=== PATIENT | female | born 1990 | race Caucasian/White ===

== ENCOUNTER → 2020-05-01 11:04 | Outpatient (CLI) | payer OTHER, SELFPAY | PROVIDERS: PCP Registered Nurse Diabetes Educator; Visit Provider Registered Nurse Diabetes Educator | DX: N89.8 Other specified noninflammatory disorders of vagina (principal) | CPT/HCPCS: 87210 ==

== ENCOUNTER → 2020-05-05 15:06 | Outpatient (CLI) | payer OTHER, SELFPAY ==
--- NOTE | 2020-05-05 15:08 | DI.US.S_ITS ---
PROCEDURE: US PELVIC COMPLETE INDICATIONS: PELVIC PAIN TECHNIQUE: Real-time scanning was performed of the pelvic organs, with image documentation. Additional endovaginal scanning was necessary due to incomplete visualization of the adnexal and endometrial structures by transabdominal scanning. COMPARISON: None. FINDINGS: Transabdominal scanning: Limited scanning through the kidneys shows no hydronephrosis. No pathologic free abdominal or pelvic fluid. Endovaginal scanning: Uterus: Uterus is normal in size at 8.0 x 3.0 x 4.5 cm. The endometrium measures 14 mm in combined thickness and microcystic changes present. Ovaries: Bilateral complex ovarian cyst measuring 2.2 x 2.0 x 1.7 cm on the right and 1.8 x 2.4 x 1.3 cm on the left. IMPRESSION: Probable bilateral hemorrhagic ovarian cyst. Recommend short-term follow-up pelvic ultrasound in 10-14 weeks to assess for interval resolution. Prominent and mult cystic appearance of the endometrial complex which can also be reassessed on follow-up1 examination. Dictated by: Phan Carias [facility] Interpreted: Yoni Cullen MD on 05/05/2020 at 15:57 Approved by: Yoni Cullen M.D. on 05/05/2020 at 16:27
== END ==
PROVIDERS: PCP Registered Nurse Diabetes Educator; Referring Provider Registered Nurse Diabetes Educator; Visit Provider Registered Nurse Diabetes Educator
DX: R10.2 Pelvic and perineal pain (principal); N83.292 Other ovarian cyst, left side; N83.291 Other ovarian cyst, right side
CPT/HCPCS: 76830; 76856

== ENCOUNTER → 2020-05-09 09:50 | Outpatient (CLI) | payer OTHER, SELFPAY ==
[2020-05-09 11:34] LABS: Specimen Label MYRIAD SALIVA
== END ==
PROVIDERS: PCP Registered Nurse Diabetes Educator; Referring Provider Obstetrics & Gynecology; Visit Provider Obstetrics & Gynecology
DX: Z80.3 Family history of malignant neoplasm of breast (principal)

== ENCOUNTER → 2020-06-20 11:00 | Outpatient (CLI) | payer OTHER, SELFPAY ==
[2020-06-20 14:22] LABS: Cancer Antigen 125 13.6 U/mL (0-35)
[2020-06-22 13:37] LABS: Human Epididymis Prot 4 33.8 pmol/L (0.0-61.2)
== END ==
PROVIDERS: PCP Registered Nurse Diabetes Educator; Referring Provider Obstetrics & Gynecology; Visit Provider Obstetrics & Gynecology
DX: N83.209 Unspecified ovarian cyst, unspecified side (principal)
CPT/HCPCS: 36415; 86304; 86305

== ENCOUNTER → 2020-09-22 10:47 | Outpatient (CLI) | payer OTHER, SELFPAY ==
--- NOTE | 2020-09-22 | DI.MG.S_ITS ---
BILATERAL DIGITAL SCREENING MAMMOGRAM 3D/2D WITH CAD: 09/22/2020 CLINICAL: Baseline exam. Routine screening. Family history of breast cancer. No prior exams were available for comparison. The tissue of both breasts is heterogeneously dense. This may lower the sensitivity of mammography. Current study was also evaluated with a Computer Aided Detection (CAD) system. No significant masses, calcifications, or other findings are seen in either breast. IMPRESSION: NEGATIVE There is no mammographic evidence of malignancy. A 1 year screening mammogram is recommended. This exam was interpreted at Station ID: [id number]. NOTE: For mammograms, a report in lay terms will be sent to the patient. Approximately 15% of breast malignancies will not be visualized mammographically. In the management of a palpable breast mass, a negative mammogram must not discourage biopsy of a clinically suspicious lesion. Electronically Signed By: Nilton roe/reshma:09/22/2020 12:32:50 letter sent: Normal Exam ACR BI-RADS Category 1: Negative [id number]
--- NOTE | 2020-09-22 10:48 | DI.MRI.S_ITS ---
BREAST MRI OF BOTH BREASTS: 09/22/2020 CLINICAL: Scrrening, Family History. TECHNIQUE: The patient was placed prone in a dedicated breast imaging coil. Precontrast axial STIR and 3D FLASH without fat saturation sequences were obtained. Both before and after bolus injection of contrast, sequential 1-minute axial 3D FLASH with fat saturation sequences for 3 time points, with subtraction images and maximum intensity projections (MIP's) generated. Delayed sagittal FLASH images with fat saturation were also obtained. Computer-aided detection, including computer algorithm analysis of MRI image data for lesion detection and characterization, pharmacokinetic analysis, with further physician review for interpretation, was performed. COMPARISON: 09/22/2020 [facility]. FINDINGS: Image quality: Excellent. There is minimal background parenchymal enhancement. There is heterogeneously dense fibroglandular tissue in the bilateral breast. Right breast: In the upper outer quadrant of the right breast approximately 5.3 cm from the nipple, there is an oval enhancing mass measuring approximately 0.5 cm x 0.8 cm in transverse dimension (image 84, series 12) and approximately 0.9 cm in craniocaudal dimension (image 48, series 18). This demonstrates mixed kinetics on delayed phase enhancement. It is T2 hyperintense. Otherwise, no other suspicious mass, architectural distortion, or non-mass enhancement. No skin or nipple abnormalities. No right-sided axillary or internal mammary chain adenopathy. Left breast: No suspicious mass, non-mass enhancement, architectural distortion, skin abnormalities, or nipple abnormalities. No left-sided axillary or internal mammary chain adenopathy. Miscellaneous: Visualized portions of the upper abdomen and chest appear unremarkable. IMPRESSION: INCOMPLETE: NEEDS ADDITIONAL IMAGING EVALUATION 1. There is a 0.5 x 0.8 x 0.9 cm oval enhancing mass in the upper, outer quadrant of the right breast middle depth with mixed kinetics on delayed phase enhancement and T2 hyperintensity. This may represent a lymph node or fibroadenoma. Prominent background parenchymal enhancement may also have a similar appearance. Recommend second-look ultrasound to further characterize. 2. Left breast without MRI evidence for malignancy. COMMENT: The imaging literature indicates that a negative contrast breast MRI examination has a high sensitivity and a moderate specificity for detecting and excluding invasive carcinomas to a detection threshold of 3-5 mm; nonetheless, appropriate clinical and mammographic follow-up are recommended. MRI is not sensitive for detecting DCIS (ductal carcinoma in situ) and may not detect large invasive neoplasms that show only minimal enhancement such as mucinous carcinoma. If there are suspicious calcifications or clinically worrisome palpable masses, then biopsy should still be considered. Invasive neoplasms can be hidden by co-existent and benign enhancement caused by mastitis, hormone therapy effects, radiation therapy, , and recent biopsy or surgery. False positive examinations can occur in a number of circumstances, including breasts that have recently been subject to invasive procedures and those that contain atypical ductal hyperplasia, hormonally stimulated glandular tissue, fat necrosis, or radial scars. This exam was interpreted at Station ID: [id number]. Electronically Signed By: Nilton Bryan M.D. aty/:09/22/2020 16:24:54 letter sent: Additional Imaging Needed ACR BI-RADS Category 0: Incomplete [id number]
== END ==
PROVIDERS: PCP Registered Nurse Diabetes Educator; Referring Provider Obstetrics & Gynecology; Visit Provider Obstetrics & Gynecology
DX: Z12.31 Encounter for screening mammogram for malignant neoplasm of breast (principal); Z12.39 Encounter for other screening for malignant neoplasm of breast; R92.8 Other abnormal and inconclusive findings on diagnostic imaging of breast; N63.11 Unspecified lump in the right breast, upper outer quadrant; Z80.3 Family history of malignant neoplasm of breast
CPT/HCPCS: 77049; 77063; 77067

== ENCOUNTER → 2020-10-02 12:39 | Outpatient (CLI) | payer OTHER, SELFPAY ==
--- NOTE | 2020-10-02 12:40 | DI.US.S_ITS ---
ULTRASOUND OF RIGHT BREAST: 10/02/2020 CLINICAL: Patient returns for additional imaging over a suspected mass in the right breast. Comparison is made to exams dated: 09/22/2020 breast MRI and 09/22/2020 mammogram - [facility]. Real-time ultrasound of the right breast was performed. Albarado scale images of the real-time examination were reviewed. No significant abnormalities were seen sonographically in the right breast. Dense fibroglandular tissue but no mass is identifed in the area of enhancement seen on prior breast MRI from 09/22/2020. No correlate is seen on the prior mammogram from 09/22/2020. IMPRESSION: PROBABLY BENIGN No sonographic abnormality is seen corresponding to the area of enhancement on the prior MRI from 09/22/2020. A follow-up breast MRI in 6 months is recommended to demonstrate stability. Future imaging is recommended as follows: 09/23/2021 screening mammogram. This exam was interpreted at Station ID: [id number]. Electronically Signed By: Beny molina/reshma:10/02/2020 17:52:34 letter sent: Followup Recommended Ultrasound BI-RADS: 3 Probably benign
== END ==
PROVIDERS: PCP Registered Nurse Diabetes Educator; Referring Provider Obstetrics & Gynecology; Visit Provider Obstetrics & Gynecology
DX: R92.8 Other abnormal and inconclusive findings on diagnostic imaging of breast (principal)
CPT/HCPCS: 76642

== ENCOUNTER → 2021-05-28 12:00 | Outpatient (CLI) | payer OTHER, SELFPAY ==
[2021-05-28 13:11] LABS: COVID19 -Nasal RAPID Negative (Negative)
== END ==
PROVIDERS: PCP Registered Nurse Diabetes Educator; Visit Provider Nurse Practitioner
DX: Z20.822 Contact with and (suspected) exposure to COVID-19 (principal); R50.9 Fever, unspecified
CPT/HCPCS: 87635

== ENCOUNTER 2021-05-30 15:02 | Emergency (ER) | payer OTHER, SELFPAY ==
[2021-05-30 15:09] VITALS: BP 137/76; PULSE 71; RESP 20; TEMP 36.6; O2SAT 100; BMI 28.2
[2021-05-30] MEDS: diphenhydrAMINE 50 MG/ML VIAL 25 MG IM (15:22)
[2021-05-30 16:02] VITALS: BP 136/74; PULSE 60; RESP 16; O2SAT 100
== END 2021-05-30 16:26 | disposition home or self-care (01) ==
PROVIDERS: Emergency Provider Emergency Medicine; PCP Registered Nurse Diabetes Educator
DX: Z53.21 Procedure and treatment not carried out due to patient leaving prior to being seen by health care provider (principal)
CPT/HCPCS: 99283; J1200; J2920

== ENCOUNTER 2021-05-31 08:42 | Emergency (ER) | payer OTHER, SELFPAY ==
[2021-05-31 09:00] VITALS: BP 117/63; PULSE 70; RESP 18; TEMP 36.6; O2SAT 98; BMI 28.2
--- NOTE | 2021-05-31 09:08 | DI.RAD.S_ITS ---
PROCEDURE: XR CHEST 2V INDICATIONS: shortness of breath TECHNIQUE: 2 views of the chest were acquired. COMPARISON: None. FINDINGS: Surgical changes and devices: None. Lungs and pleura: Lungs are clear. No pleural effusions or pneumothorax. Mediastinum: Mediastinal contours are normal. Heart size is normal. Bones and chest wall: No suspicious bony abnormalities. Soft tissues appear unremarkable. IMPRESSION: No significant plain film abnormality is seen. If there is clinical concern for a developing pulmonary process, a short-term followup chest series (with PA and lateral views, performed in deep inspiration) is suggested for further evaluation. Dictated by: Shayne Up M.D. on 05/31/2021 at 8:45 Approved by: Shayne Up M.D. on 05/31/2021 at 8:45
[2021-05-31 09:15] LABS: Add Manual Diff / Slide Review NO; Basophils Absolute Auto 100 /uL (0-100); Basophils Percent Auto 0.5 % (0-2); Eosinophils Absolute Auto 0 /uL (0-450); Hematocrit 38.9 % (36-46); Hemoglobin 13.5 g/dL (12.0-16.0); Lymphocytes Absolute Auto 800 /uL (1100-4500); Lymphocytes Percent Auto 4.2 % (25-40); Mean Corpuscular HGB Conc 34.6 % (30-36); Mean Corpuscular Hemoglobin 31.4 PG (26-34); Mean Corpuscular Volume 90.7 fL (80-100); Monocytes Absolute Auto 600 /uL (0-900); Neutrophils Absolute Auto 18300 /uL (1500-7000); Neutrophils Percent Auto 92.3 % (50-75); Platelet Count 282 X10^3/uL (150-400); Red Blood Cell Count 4.29 X10^6/uL (4.0-5.2); Red Cell Distribution Width 12.3 % (11.6-14.8); White Blood Cell Count 19.8 X10^3/uL (4.5-11.0)
[2021-05-31 09:19] LABS: Alanine Aminotransferase 34 IU/L (<35); Albumin Globulin Ratio 1.7 (1.0-2.8); Alkaline Phosphatase 56 U/L (38-126); Aspartate Aminotransferase 39 IU/L (14-36); BUN Creatinine Ratio 28.3 (6-22); Bilirubin Total 0.7 mg/dL (0.2-1.3); Blood Urea Nitrogen 17 mg/dL (7-17); Calcium 10.3 mg/dL (8.4-10.2); Carbon Dioxide 24 mmol/L (22-32); Chloride 107 mmol/L (98-107); Estimated Glomerular Filt Rate > 60.0 mL/min (>60); Glucose 123 mg/dL (70-100); HEMOLYSIS < 15 (0-50); Potassium 4.3 mmol/L (3.4-5.1); Sodium 140 mmol/L (137-145)
[2021-05-31 09:20] LABS: Lactate (Lactic Acid) 1.4 mmol/L (0.7-2.1)
--- NOTE | 2021-05-31 09:37 | ED_ITS ---
HPI - SOB/Dyspnea General Chief Complaint: Shortness of Breath/Dyspnea Stated Complaint: Trouble Breathing/Lt lower side back pain/heartrat Time Seen by Provider: 05/31/21 09:24 Source: patient Mode of arrival: Ambulatory Limitations: no limitations History of Present Illness HPI Narrative: Patient here for chest tightness shortness of breath wheezing in throat tightness 8:00 a.m. today at work. Patient seen here yesterday after reaction to Moderna COVID shot. Yesterday she had rash and shortness of breath and throat tightening 30 minutes after her 1st vaccination. Patient tested negative for COVID this past Friday or return to work as her was positive for COVID, she she just finished quarantine. Today at work she had sudden onset of the symptoms. Now has resolved. Patient did receive steroids yesterday. White cell count noted. Likely due to steroid injection yesterday. Is not on steroid pack. Symptom free at this time. Patient has history of allergy induced asthma. Likely vaccine induced her asthma as she has shown allergy to the Moderna vaccine Related Data Previous Rx's Medication Instructions Recorded famotidine 20 mg tablet 20 mg PO BID #14 tab 05/31/21 methylprednisolone 4 mg tablets in See Rx Instructions .ROUTE 05/31/21 a dose pack (Medrol (Jean Marie)) .COMPLEX #21 each fluticasone propionate 110 2 puff INHALATION BID #12 g 06/01/21 mcg/actuation HFA aerosol inhaler (Flovent HFA) Allergies Allergy/AdvReac Type Severity Reaction Status Date / Time amoxicillin Allergy Severe rash Verified 05/30/21 15:13 corn Allergy Mild rash Verified 05/30/21 15:13 Review of Systems Review of Systems Narrative: GENERAL: Denies chills, fatigue, malaise, fever, sweats. HEENT: Denies sinus pain, ear pain, sore throat RESPIRATORY: Complains of dyspnea, denies cough CARDIOVASCULAR: Complains chest pain, palpitations GASTROINTESTINAL: Denies nausea, vomiting, abdominal pain : Denies dysuria, frequency, hematuria MUSCULOSKELETAL: denies muscle or bony pain SKIN: Denies rash, skin lesions, no rash NEUROLOGIC: Denies weakness, numbness ROS Unobtainable: All systems reviewed & are unremarkable except as noted in HPI and below Patient History Medical History Allergies Asthma Breakthrough bleeding on Nexplanon Chicken pox Chronic back pain (~2007) Chronic bilateral low back pain with right-sided sciatica Family history of melanoma Foot pain (~2014) Fractures Frequent UTI (~2016) Hearing disorder Heavy menstrual period (~2005) Irregular menstrual cycle (~2013) Irritability Migraines (~2014) MRSA (methicillin resistant Staphylococcus aureus) (~2007) Ovarian cyst (~2016) Painful menstrual periods (~2015) Pelvic pain Shoulder pain (~2017) Vaginal discharge Surgical History Anesthesia History of skin surgery (~2007) [place] teeth removed (~2009) Family History Father Melanoma Mother Melanoma Grandfather Diabetes mellitus Grandmother Hypertension Diabetes mellitus Grandfather Cancer Stroke Grandmother Cancer Hypertension Hyperlipidemia Social History Smoking Status: Former smoker second hand exposure: No alcohol intake: current substance use type: does not use Smoking Status: Former smoker alcohol intake frequency: 0-2 drinks per day Substance Use Type: does not use Exam Narrative Exam Narrative: GENERAL: in no distress, not toxic not dyspneic HEAD: Normocephalic. EYES: Pupils equal round No scleral icterus. No injection no discharge ENT: Mucous membranes moist. No tongue elevation, no pharyngeal erythema edema, no stridor NECK: Trachea midline. CARDIOVASCULAR: Regular rate and rhythm without murmurs RESPIRATORY: Clear to auscultation. Breath sounds equal bilaterally. No wheezes, rales, or rhonchi. Speaking full sentences GASTROINTESTINAL: Abdomen soft, non-tender EXTREMITIES: No gross deformities. BACK: No flank tenderness. NEURO: AOx4. SKIN: Warm and dry, no rash PSYCH: Not anxious, is cooperative Initial Vital Signs Initial Vital Signs: Vital Signs Temperature 97.9 F 05/31/21 09:00 Pulse Rate 70 05/31/21 09:00 Respiratory Rate 18 05/31/21 09:00 Blood Pressure 117/63 05/31/21 09:00 Pulse Oximetry 98 05/31/21 09:00 Course Course Course Narrative: No new issues during course of stay Orders Ordered: Discontinued Medications Famotidine (Famotidine 20 Mg/2 Ml Vial) 20 mg IV NOW GINO Last Admin: 05/31/21 10:26 Dose: 20 mg Documented by: KVNG Methylprednisolone (Methylprednisolone 125 Mg/2 Ml Vial) 125 mg IV NOW ONE Stop: 05/31/21 10:16 Last Admin: 05/31/21 10: Dose: 125 mg Documented by: KVNG Reevaluation(s) Reevaluation #1: No complaints or symptoms at this time. Reviewed results with patient and agrees with treatment plan and follow-up and continue steroid pack and [id number] Benadryl. Will add Pepcid to patient's regimen Time: 10:09 Vital Signs Vital signs: Vital Signs - 8 hr 05/31/21 09:00 Temperature 97.9 F Pulse Rate 70 Respiratory Rate 18 Blood Pressure 117/63 Pulse Oximetry 98 MDM - SOB/Dyspnea Differential Diagnosis Differential diagnosis: Likely asthma with exacerbation and other (Allergic reaction) Lab Data Result diagrams: 05/31/21 08:51 05/31/21 08:51 Labs: Lab Results 05/31/21 05/31/21 05/31/21 Range/Units 08:51 08:51 08:51 WBC 19.8 H (4.5-11.0) X10^3/uL RBC 4.29 (4.0-5.2) X10^6/uL Hgb 13.5 (12.0-16.0) g/dL Hct 38.9 (36-46) % MCV 90.7 (80-100) fL MCH 31.4 (26-34) PG MCHC 34.6 (30-36) % RDW 12.3 (11.6-14.8) % Plt Count 282 (150-400) X10^3/uL Neut % (Auto) 92.3 H (50-75) % Lymph % (Auto) 4.2 L (25-40) % [place] % (Auto) 3.0 (3-14) % Eos % (Auto) 0.0 L (2-4) % Baso % (Auto) 0.5 (0-2) % Neut # (Auto) 05128 H (4855-1497) /uL Lymph # (Auto) 800 L (1222-9674) /uL [place] # (Auto) 600 (0-900) /uL Eos # (Auto) 0 (0-450) /uL Baso # (Auto) 100 (0-100) /uL Sodium 140 (137-145) mmol/L Potassium 4.3 (3.4-5.1) mmol/L Chloride 107 (98-107) mmol/L Carbon Dioxide 24 (22-32) mmol/L BUN 17 (7-17) mg/dL Creatinine 0.60 (0.52-1.04) mg/dL Estimated GFR > 60.0 (>60) mL/min BUN/Creatinine Ratio 28.3 H (6-22) Glucose 123 H (70-100) mg/dL Lactate 1.4 (0.7-2.1) mmol/L Calcium 10.3 H (8.4-10.2) mg/dL Total Bilirubin 0.7 (0.2-1.3) mg/dL AST 39 H (14-36) IU/L ALT 34 (<35) IU/L Alkaline Phosphatase 56 (38-126) U/L Total Creatine Kinase (30-135) U/L CK-MB (CK-2) CK-MB (CK-2) Rel Index Troponin I (0.01-0.034) ng/mL Total Protein 8.0 (6.3-8.2) g/dL Albumin 5.0 (3.5-5.0) g/dL Globulin 3.0 (1.7-4.1) g/dL Albumin/Globulin Ratio 1.7 (1.0-2.8) // Range/Units 08:57 WBC (4.5-11.0) X10^3/uL RBC (4.0-5.2) X10^6/uL Hgb (12.0-16.0) g/dL Hct (36-46) % MCV (80-100) fL MCH (26-34) PG MCHC (30-36) % RDW (11.6-14.8) % Plt Count (150-400) X10^3/uL Neut % (Auto) (50-75) % Lymph % (Auto) (25-40) % [place] % (Auto) (3-14) % Eos % (Auto) (2-4) % Baso % (Auto) (0-2) % Neut # (Auto) (1702-1195) /uL Lymph # (Auto) (7842-2110) /uL [place] # (Auto) (0-900) /uL Eos # (Auto) (0-450) /uL Baso # (Auto) (0-100) /uL Sodium (137-145) mmol/L Potassium (3.4-5.1) mmol/L Chloride (98-107) mmol/L Carbon Dioxide (22-32) mmol/L BUN (7-17) mg/dL Creatinine (0.52-1.04) mg/dL Estimated GFR (>60) mL/min BUN/Creatinine Ratio (6-22) Glucose (70-100) mg/dL Lactate (0.7-2.1) mmol/L Calcium (8.4-10.2) mg/dL Total Bilirubin (0.2-1.3) mg/dL AST (14-36) IU/L ALT (<35) IU/L Alkaline Phosphatase (38-126) U/L Total Creatine Kinase 75 (30-135) U/L CK-MB (CK-2) TNP CK-MB (CK-2) Rel Index TNP Troponin I < 0.012 (0.01-0.034) ng/mL Total Protein (6.3-8.2) g/dL Albumin (3.5-5.0) g/dL Globulin (1.7-4.1) g/dL Albumin/Globulin Ratio (1.0-2.8) Imaging Data Chest x-ray: Radiologist's Impression: [address] 98 221XRay ReportSigned Patient: Roxana Ho LMR#: [id number]: 1990Acct:[id number]/Sex: 31 / FDate of Service: 05/31/21Loc: EDAccession Number: [id number] Procedure: XR chest 2V Ordering Provider: Cam Cortez MD PROCEDURE: XR CHEST 2V INDICATIONS: shortness of breath TECHNIQUE: 2 views of the chest were acquired. COMPARISON: None. FINDINGS: Surgical changes and devices: None. Lungs and pleura: Lungs are clear. No pleural effusions or pneumothorax. Mediastinum: Mediastinal contours are normal. Heart size is normal. Bones and chest wall: No suspicious bony abnormalities. Soft tissues appear unremarkable. IMPRESSION: No significant plain film abnormality is seen. If there is clinical concern for a developing pulmonary process, a short-term followup chest series (with PA and lateral views, performed in deep inspiration) is suggested for further evaluation. Dictated by: Shayne Up M.D. on 05/31/2021 at 8:45 Approved by: Shayne Up M.D. on 05/31/2021 at 8:45 ECG Data Interpretation: Normal sinus rhythm, incomplete right bundle-branch block, no ST elevation or depression. Rate 62 MDM Narrative Medical decision making narrative: Appropriate discharge home. Symptoms consistent this morning with continued allergic reaction. Patient stands with immune response from the COVID vaccine yesterday may experience asthma exacerbations. Steroid pack provided. Return precautions reviewed. Agrees for treatment plan and follow-up with primary care. Patient has history of allergy induced asthma. Patient experiencing allergies to vaccine. Likely triggering her asthma. Not toxic at discharge. Symptom free. White cell count due to steroid yesterday Discharge Plan Departure Patient Disposition: Home Clinical Impression: Allergic reaction Qualifiers: Encounter type: subsequent encounter Qualified Code(s): T78.40XD - Allergy, unspecified, subsequent encounter Instructions: Anaphylaxis Activity Restrictions/Additional Instructions: Your likely having continued allergic reaction to the Moderna vaccine from yesterday. Continues to her back tomorrow. See family doctor within a week for recheck. Be sure to see your family doctor regarding any future COVID va ccinations. Return if any trouble breathing or shortness of breath or any oral swelling. Return if any questions or concerns Prescriptions: New methylprednisolone [Medrol (Jean Marie)] 4 mg tablets,dose pack See Rx Instructions .ROUTE .COMPLEX Qty: 21 RF: 0 famotidine 20 mg tablet 20 mg PO BID Qty: 14 RF: 0 No Action Flovent HFA 110 mcg/actuation HFA aerosol inhaler 2 puff inhalation BID Qty: 12 RF: 3 Referrals: Lazarus Sahu ARNP [Primary Care Provider] - Stand Alone Forms: Work Release Note
[2021-05-31 09:45] LABS: Creatine Kinase 75 U/L (30-135)
[2021-05-31 09:58] LABS: Troponin I < 0.012 ng/mL (0.01-0.034)
[2021-05-31] MEDS: methylPREDNISolone 125 MG/2 ML VIAL IV (10:26)
[2021-05-31] MEDS: FAMOTIDINE 20 MG/2 ML VIAL IV (10:26)
[2021-05-31 10:34] VITALS: BP 115/64; PULSE 60; RESP 18; O2SAT 100
== END 2021-05-31 10:35 | disposition home or self-care (01) ==
PROVIDERS: Emergency Provider Emergency Medicine; PCP Registered Nurse Diabetes Educator
DX: R06.02 Shortness of breath (principal); R07.9 Chest pain, unspecified; T50.B95D Adverse effect of other viral vaccines, subsequent encounter
CPT/HCPCS: 36415; 71046; 80053; 82550; 83605; 84484; 85025; 93005; 93010; 96374; 96375; 99284; J2930

== ENCOUNTER → 2021-06-05 17:09 | Outpatient (CLI) | payer OTHER, SELFPAY ==
--- NOTE | 2021-06-05 17:11 | DI.RAD.S_ITS ---
PROCEDURE: XR CERVICAL SPINE 2V OR 3V INDICATIONS: neck pain and hand numbness TECHNIQUE: 3 view(s) of the cervical spine were acquired. COMPARISON: None. FINDINGS: Bones: No acute fracture identified. Straightening of the normal lordotic curvature. Multilevel degenerative endplate sclerosis and spurring. Diffuse facet arthropathy. No definite disc space narrowing. Mild levocurvature. Soft tissues: No prevertebral soft tissue swelling. IMPRESSION: Straightening of the normal lordotic curvature. Minimal degenerative changes. If the patient's pain or other symptoms persist, consider further evaluation with MRI Dictated by: Jake Ricci M.D. on 06/06/2021 at 8:59 Approved by: Jake iRcci M.D. on 06/06/2021 at 9:00
--- NOTE | 2021-06-05 17:11 | DI.RAD.S_ITS ---
PROCEDURE: XR ANKLE LT MIN 3V INDICATIONS: left ankle pain TECHNIQUE: 3 views of the ankle were acquired. COMPARISON: None. FINDINGS: Bones: Scattered degenerative subchondral sclerosis and spurring. Lucency involving the tip of the medial malleolus is probably degenerative/chronic although technically indeterminate. There is anatomic alignment. Large os trigonum incidentally noted. Soft tissues: Possible mild lateral soft tissue swelling. IMPRESSION: Linear lucency projects at the tip of the medial malleolus although this could be chronic/degenerative, technically indeterminate and recommend correlation to point tenderness. If the patient's pain or other symptoms persist, consider further evaluation with MRI Dictated by: Jake Ricci M.D. on 06/06/2021 at 8:40 Approved by: Jake Ricci M.D. on 06/06/2021 at 8:42
== END ==
PROVIDERS: PCP Registered Nurse Diabetes Educator; Referring Provider Family Medicine; Visit Provider Family Medicine
DX: M25.572 Pain in left ankle and joints of left foot (principal); M54.12 Radiculopathy, cervical region; T78.40XA Allergy, unspecified, initial encounter
CPT/HCPCS: 72040; 73610

== ENCOUNTER → 2021-06-13 08:33 | Outpatient (CLI) | payer OTHER, SELFPAY ==
[2021-06-13 09:58] LABS: Add Manual Diff / Slide Review NO; Basophils Absolute Auto 0 /uL (0-100); Basophils Percent Auto 0.1 % (0-2); Eosinophils Absolute Auto 200 /uL (0-450); Eosinophils Percent Auto 1.9 % (2-4); Hematocrit 37.1 % (36-46); Lymphocytes Absolute Auto 1800 /uL (1100-4500); Lymphocytes Percent Auto 20.4 % (25-40); Mean Corpuscular HGB Conc 35.2 % (30-36); Mean Corpuscular Hemoglobin 31.4 PG (26-34); Mean Corpuscular Volume 89.4 fL (80-100); Monocytes Absolute Auto 600 /uL (0-900); Monocytes Percent Auto 6.9 % (3-14); Neutrophils Absolute Auto 6200 /uL (1500-7000); Neutrophils Percent Auto 70.7 % (50-75); Platelet Count 238 X10^3/uL (150-400); Red Blood Cell Count 4.15 X10^6/uL (4.0-5.2); Red Cell Distribution Width 12.7 % (11.6-14.8); White Blood Cell Count 8.7 X10^3/uL (4.5-11.0)
[2021-06-13 11:23] LABS: Alanine Aminotransferase 45 IU/L (<35); Albumin 4.4 g/dL (3.5-5.0); Albumin Globulin Ratio 1.6 (1.0-2.8); Alkaline Phosphatase 58 U/L (38-126); Aspartate Aminotransferase 41 IU/L (14-36); BUN Creatinine Ratio 18.3 (6-22); Blood Urea Nitrogen 13 mg/dL (7-17); Calcium 9.5 mg/dL (8.4-10.2); Carbon Dioxide 27 mmol/L (22-32); Chloride 104 mmol/L (98-107); Estimated Glomerular Filt Rate > 60.0 mL/min (>60); Globulin 2.7 g/dL (1.7-4.1); Glucose 97 mg/dL (70-100); HEMOLYSIS < 15 (0-50); Potassium 3.9 mmol/L (3.4-5.1); Sodium 138 mmol/L (137-145); Total Protein 7.1 g/dL (6.3-8.2)
[2021-06-13 11:46] LABS: TSH w/ Reflex to FT4 1.53 uIU/mL (0.47-4.68)
== END ==
PROVIDERS: PCP Registered Nurse Diabetes Educator; Referring Provider Family Medicine; Visit Provider Family Medicine
DX: M54.12 Radiculopathy, cervical region (principal); R20.2 Paresthesia of skin; H53.9 Unspecified visual disturbance
CPT/HCPCS: 36415; 80053; 84443; 85025

== ENCOUNTER → 2021-06-29 09:36 | Outpatient (CLI) | payer OTHER, SELFPAY ==
--- NOTE | 2021-06-29 09:36 | DI.MRI.S_ITS ---
PROCEDURE: MR HEAD/BRAIN WO CON INDICATIONS: parasthesias and hand numbness and pain after covid vaccine. TECHNIQUE: Noncontrast axial T1 spin echo, axial T2 fast spin echo, sagittal and axial FLAIR, coronal T2 fast spin echo, axial gradient echo, axial diffusion and ADC through the brain. COMPARISON: None. FINDINGS: Image quality: Excellent. CSF Spaces: Basal cisterns are patent. No extra-axial fluid collections. Ventricles are normal in size and shape. Brain: No intracranial masses or hemorrhage. Albarado/white matter interface is normal. Brainstem appears normal. Diffusion-weighted images demonstrate no acute ischemic insult. No chronic ischemic insults. Normal intravascular flow voids are present. Skull and face: Calvarium has normal marrow signal. Orbits appear normal. Sinuses: Sinuses and mastoids are clear. IMPRESSION: 1. No acute intracranial process. Dictated by: Beth Birmingham M.D. on 06/29/2021 at 12:28 Approved by: Beth Birmingham M.D. on 06/29/2021 at 12:29
== END ==
PROVIDERS: PCP Registered Nurse Diabetes Educator; Referring Provider Family Medicine; Visit Provider Family Medicine
DX: M54.12 Radiculopathy, cervical region (principal); R20.2 Paresthesia of skin; H53.9 Unspecified visual disturbance
CPT/HCPCS: 70551

== ENCOUNTER → 2021-10-30 12:37 | Outpatient (CLI) | payer BC, SELFPAY ==
[2021-10-30 13:39] LABS: Alanine Aminotransferase 18 IU/L (<35); Albumin 4.8 g/dL (3.5-5.0); Albumin Globulin Ratio 1.9 (1.0-2.8); Alkaline Phosphatase 52 U/L (38-126); Aspartate Aminotransferase 26 IU/L (14-36); BUN Creatinine Ratio 16.4 (6-22); Bilirubin Total 0.8 mg/dL (0.2-1.3); Blood Urea Nitrogen 12 mg/dL (7-17); Carbon Dioxide 29 mmol/L (22-32); Chloride 104 mmol/L (98-107); Estimated Glomerular Filt Rate > 60.0 mL/min (>60); Globulin 2.5 g/dL (1.7-4.1); Glucose 100 mg/dL (70-100); HEMOLYSIS < 15 (0-50); Sodium 140 mmol/L (137-145); Total Protein 7.3 g/dL (6.3-8.2)
== END ==
PROVIDERS: PCP Family Medicine; Referring Provider Family Medicine; Visit Provider Family Medicine
DX: R74.8 Abnormal levels of other serum enzymes (principal)
CPT/HCPCS: 36415; 80053

== ENCOUNTER → 2023-06-05 15:38 | Outpatient (CLI) | payer BC, SELFPAY ==
[2023-06-05 16:59] LABS: Add Manual Diff / Slide Review NO; Basophils Absolute Auto 0 /uL (0-100); Basophils Percent Auto 0.3 % (0-2); Eosinophils Absolute Auto 200 /uL (0-450); Hematocrit 37.3 % (36-46); Hemoglobin 13.3 g/dL (12.0-16.0); Lymphocytes Absolute Auto 2000 /uL (1100-4500); Mean Corpuscular HGB Conc 35.6 % (30-36); Mean Corpuscular Hemoglobin 31.7 PG (26-34); Mean Corpuscular Volume 88.9 fL (80-100); Monocytes Absolute Auto 400 /uL (0-900); Monocytes Percent Auto 5.5 % (3-14); Neutrophils Absolute Auto 5500 /uL (1500-7000); Neutrophils Percent Auto 67.2 % (50-75); Platelet Count 274 X10^3/uL (150-400); Red Cell Distribution Width 12.4 % (11.6-14.8); White Blood Cell Count 8.2 X10^3/uL (4.5-11.0)
[2023-06-05 17:21] LABS: Alanine Aminotransferase 23 IU/L (<35); Albumin 4.7 g/dL (3.5-5.0); Albumin Globulin Ratio 1.5 (1.0-2.8); Alkaline Phosphatase 50 U/L (38-126); Aspartate Aminotransferase 31 IU/L (14-36); Bilirubin Total 0.7 mg/dL (0.2-1.3); Blood Urea Nitrogen 15 mg/dL (7-17); Carbon Dioxide 28 mmol/L (22-32); Chloride 101 mmol/L (98-107); Estimated Glomerular Filt Rate > 60 mL/min (>60); Globulin 3.2 g/dL (1.7-4.1); Glucose 96 mg/dL (70-100); HEMOLYSIS < 15 (0-50); Potassium 3.7 mmol/L (3.4-5.1); Sodium 139 mmol/L (137-145); Total Protein 7.9 g/dL (6.3-8.2)
[2023-06-05 20:43] LABS: Erythrocyte Sedimentation Rate 5 MM/HR (0-20)
== END ==
PROVIDERS: PCP Family Medicine; Referring Provider Pediatrics; Visit Provider Pediatrics
DX: G43.109 Migraine with aura, not intractable, without status migrainosus (principal); L50.9 Urticaria, unspecified; R42 Dizziness and giddiness
CPT/HCPCS: 36415; 80053; 83520; 85025; 85651

== ENCOUNTER → 2023-06-25 07:49 | Outpatient (CLI) | payer BC, SELFPAY ==
--- NOTE | 2023-06-25 07:50 | DI.US.S_ITS ---
PROCEDURE: US PELVIC COMPLETE INDICATIONS: PAIN TECHNIQUE: Real-time scanning was performed of the pelvic organs, with image documentation. Additional endovaginal scanning was necessary due to incomplete visualization of the adnexal and endometrial structures by transabdominal scanning. COMPARISON: [facility], US, US PELVIC COMPLETE, 08/08/2020, 11:04. FINDINGS: Uterus: Uterus is anteverted and normal in size at 7.5 x 4.2 x 2.4 cm. The myometrium is homogeneous. The endometrium measures 3.0 mm combined thickness. Increased vascularity within the myometrium. Prominent veins adjacent to the uterus. Ovaries: The right ovary measures 3.1 x 2.7 x 2.0 cm, with a calculated ovarian volume of 8.7 cc. The left ovary measures 3.8 x 1.2 x 1.4 cm, with a calculated ovarian volume of 3.5 cc. Thick-walled complex right ovarian cyst measuring 1.1 x 1.0 x 0.6 cm. . Less than 12 follicles can be seen in each ovary. No adnexal masses are seen. Other: No pathologic free abdominal or pelvic fluid. Urinary bladder debris is seen. IMPRESSION: 1. Increased vascularity of the myometrium with prominent fundal veins. Recommend clinical correlation with pelvic congestion syndrome. 2. Complex thick-walled right ovarian cyst measuring 1.1 cm. Consider 6-12 week follow-up ultrasound to assess stability or resolution. 3. Mobile debris within the urinary bladder, nonspecific and can be seen with cystitis. Recommend clinical correlation and urinalysis if clinically indicated. We strive to produce accurate, complete, and clear reports of imaging services. To assist us in improving patient care, this report was composed using standard report templates and voice recognition software. Therefore, it may contain abnormal punctuation, insertions and/or omissions. Occasional wrong-word or sound-alike substitutions may occur. Though we review the report and make efforts to correct it, we do recommend that the report be read carefully in proper context to recognize any text inaccuracies. Dictated by: Jorge A Casarez M.D. on 06/25/2023 at 10:28 Approved by: Jorge A Casarez M.D. on 06/25/2023 at 10:32
== END ==
PROVIDERS: PCP Family Medicine; Referring Provider Registered Nurse Diabetes Educator; Visit Provider Registered Nurse Diabetes Educator
DX: N83.291 Other ovarian cyst, right side (principal); R10.30 Lower abdominal pain, unspecified; R10.2 Pelvic and perineal pain
CPT/HCPCS: 76830; 76856

== ENCOUNTER → 2023-06-28 12:31 | Outpatient (CLI) | payer BC, SELFPAY ==
[2023-06-28 12:47] LABS: Appearance Urine UA CLEAR; Bilirubin Urine UA NEGATIVE (NEGATIVE); Color Urine UA YELLOW; Glucose Urine UA NEGATIVE (Negative); Ketones Urine UA NEGATIVE (NEGATIVE); Leukocyte Esterase Urine UA 1+ (NEGATIVE); Nitrite Urine UA NEGATIVE (Negative); Occult Blood Urine UA NEGATIVE (Negative); Protein Urine UA NEGATIVE (Negative); Specific Gravity Urine UA 1.015 (1.000-1.035); Urobilinogen Urine UA 0.2 E.U./dL (0.2)
[2023-06-28 13:00] LABS: Bacteria Urine Occasional (0-1); Culture Indicated Urine Specimen Cultured; RBC Urine 0-1/HPF (0-5/HPF); Squamous Epithelial Cell Urine 0-1 /HPF (0-5/HPF); WBC Urine 1-5/HPF (0-5/HPF)
== END ==
PROVIDERS: PCP Family Medicine; Referring Provider Registered Nurse Diabetes Educator; Visit Provider Registered Nurse Diabetes Educator
DX: N94.89 Other specified conditions associated with female genital organs and menstrual cycle (principal); N83.201 Unspecified ovarian cyst, right side; R93.41 Abnormal radiologic findings on diagnostic imaging of renal pelvis, ureter, or bladder; R10.30 Lower abdominal pain, unspecified
CPT/HCPCS: 81001; 87086

== ENCOUNTER → 2023-07-16 14:19 | Outpatient (CLI) | payer BC, SELFPAY | PROVIDERS: PCP Family Medicine; Visit Provider Registered Nurse Diabetes Educator | DX: R10.9 Unspecified abdominal pain (principal) | CPT/HCPCS: 87086 ==

== ENCOUNTER → 2024-09-13 14:23 | Outpatient (CLI) | payer BC, SELFPAY ==
[2024-09-15 14:35] LABS: Candida species Negative (Negative); Gardnerella vaginalis Negative (Negative); Trichomoas vaginalis Negative (Negative)
== END ==
PROVIDERS: PCP Family Medicine; Visit Provider Student in an Organized Health Care Education/Training Program
DX: N89.8 Other specified noninflammatory disorders of vagina (principal)
CPT/HCPCS: 87480; 87510; 87660

== ENCOUNTER → 2024-09-24 13:27 | Outpatient (CLI) | payer BC, SELFPAY ==
--- NOTE | 2024-09-24 13:28 | DI.US.S_ITS ---
PROCEDURE: US PELVIC COMPLETE INDICATIONS: chronic pelvic pain, re-evaluate ovarian cyst TECHNIQUE: Real-time scanning was performed of the pelvic organs, with image documentation. Additional endovaginal scanning was necessary due to incomplete visualization of the adnexal and endometrial structures by transabdominal scanning. COMPARISON: [facility], US, US PELVIC COMPLETE, 06/25/2023, 8:08. FINDINGS: Uterus: Uterus is anteverted and normal in size at 6.8 x 5.1 x 2.8 cm. The myometrium is homogeneous. The endometrium measures 9 mm combined thickness. Prominent veins adjacent to the uterus. Ovaries: The right ovary measures 3.5 x 2.2 x 1.6 cm, with a calculated ovarian volume of 6.4 cc. The left ovary measures 3.7 x 2.5 x 2.4 cm, with a calculated ovarian volume of 11.7 cc. Thick-walled left ovarian cyst measuring 2.4 x 2.4 x 2.0 centimeters with peripheral vascularity. The ovaries have a normal sonographic appearance. Less than 12 follicles can be seen in each ovary. No adnexal masses are seen. Other: Small volume simple free fluid is nonspecific. IMPRESSION: Again seen prominent vascularity, correlate for pelvic congestion syndrome. Left ovarian thick-walled cyst measuring 2.4 centimeters, may represent a corpus luteal cyst. Small simple free fluid within the pelvis is nonspecific. May be physiologic. We strive to produce accurate, complete, and clear reports of imaging services. To assist us in improving patient care, this report was composed using standard report templates and voice recognition software. Therefore, it may contain abnormal punctuation, insertions and/or omissions. Occasional wrong-word or sound-alike substitutions may occur. Though we review the report and make efforts to correct it, we do recommend that the report be read carefully in proper context to recognize any text inaccuracies. Dictated by: Jorge A Casarez M.D. on 09/24/2024 at 16:04 Approved by: Jorge A Casarez M.D. on 09/24/2024 at 16:07
== END ==
PROVIDERS: PCP Family Medicine; Referring Provider Student in an Organized Health Care Education/Training Program; Visit Provider Student in an Organized Health Care Education/Training Program
DX: N83.202 Unspecified ovarian cyst, left side (principal); R10.2 Pelvic and perineal pain; G89.29 Other chronic pain
CPT/HCPCS: 76830; 76856

== ENCOUNTER → 2025-04-18 10:31 | Outpatient (CLI) | payer OTHER, SELFPAY ==
[2025-04-18 11:42] LABS: Add Manual Diff / Slide Review NO; Hematocrit 35.1 % (36-46); Hemoglobin 12.3 g/dL (12.0-16.0); Lymphocytes Absolute Auto 1600 /uL (1100-4500); Mean Corpuscular HGB Conc 35.0 % (30-36); Mean Corpuscular Hemoglobin 31.6 PG (26-34); Mean Corpuscular Volume 90.3 fL (80-100); Platelet Count 236 X10^3/uL (150-400)
[2025-04-18 12:21] LABS: Alanine Aminotransferase 19 IU/L (<35); Albumin 4.6 g/dL (3.5-5.0); Albumin Globulin Ratio 2.0 (1.0-2.8); Alkaline Phosphatase 49 U/L (38-126); Blood Urea Nitrogen 12 mg/dL (7-17); Calcium 9.5 mg/dL (8.4-10.2); Carbon Dioxide 25 mmol/L (22-32); Chloride 105 mmol/L (98-107); Estimated Glomerular Filt Rate > 60 mL/min (>60); Globulin 2.3 g/dL (1.7-4.1); Glucose 97 mg/dL (70-99); HEMOLYSIS < 15 (0-50); Potassium 4.5 mmol/L (3.4-5.1); Sodium 137 mmol/L (137-145); Total Protein 6.9 g/dL (6.3-8.2)
[2025-04-18 12:39] LABS: TSH w/ Reflex to FT4 0.80 uIU/mL (0.47-4.68)
== END ==
PROVIDERS: PCP Family Medicine; Referring Provider Family Medicine; Visit Provider Family Medicine
DX: R61 Generalized hyperhidrosis (principal); R22.30 Localized swelling, mass and lump, unspecified upper limb; Z80.3 Family history of malignant neoplasm of breast
CPT/HCPCS: 36415; 80053; 84443; 85025